=== PATIENT | female | born 1985 | race Caucasian/White ===

== ENCOUNTER 2017-07-27 08:18 | Emergency (ER) | payer OTHER ==
[2017-07-27 11:12] VITALS: BP 115/76
== END 2017-07-27 11:12 | disposition home or self-care (01) ==
LOC: ED 08:18
DX: S16.1XXA Strain of muscle, fascia and tendon at neck level, initial encounter (principal); S00.03XA Contusion of scalp, initial encounter; V49.40XA Driver injured in collision with unspecified motor vehicles in traffic accident, initial encounter; Y93.89 Activity, other specified; Y99.8 Other external cause status; Y92.89 Other specified places as the place of occurrence of the external cause

== ENCOUNTER 2017-08-28 23:48 | Inpatient (IN) | payer OTHER ==
[~2017-08-28] VITALS: Ht 149.9 cm; Wt 55.0 kg
--- NOTE | 2017-08-29 00:02 | NUR ---
PT BIB AMBULANCE WITH MOIZ FIRE FOR C/O HYPERVENTILATION AND ABDOMINAL CRAMPING. PER MEDICS PT WAS SEEN AT ER YESTERDAY AND WAS TOLD SHE WAS HAVING A MISCARRIAGE AT 6 WEEKS GESTATION. PT WAS SENT HOME WITH CYTOTEC AND ANTIBIOTICS. PT STATES SHE PASSED MULTIPLE COTS AT APPROX 1930 THIS EVENING AND HAS BEEN HAVING VAGINAL BLEEDING AND ABDOMINAL CRAMPING. PT ARRIVED AWAKE AND ALERT, RESP EVEN BUT SLIGHTLY LABORED. PT PLACED ON FULL MONITORS WITH BEDSIDE RAILS FOR SAFETY. CALL GARCES WITHIN REACH.
--- NOTE | 2017-08-29 00:05 | NUR ---
DR CLINTON AT BEDSIDE FOR MSE
[2017-08-29 01:04] LABS: BASOPHIL % 0.2 % (0-2); PLATELET COUNT 233 x10^3mcL (130-400)
--- NOTE | 2017-08-29 01:04 | NUR ---
ACCOMPANIED DR CLINTON WITH PELVIC EXAM
[2017-08-29 01:05] LABS: RED CELL DISTRIBUTION WIDTH 15.7 % (11.5-14.5)
--- NOTE | 2017-08-29 01:07 | NUR ---
PT PROVIDED ICE CHIPS OK PER DR CLINTON
--- NOTE | 2017-08-29 01:21 | NUR ---
PT IS HYPOTENSIVE. RESPIRATIONS LABORED. PT STATES SHE IS 10/[address] CLINTON AWARE. NORMAL SALINE BOLUS ORDERED. WILL CONTINUE TO MONINTOR.
--- NOTE | 2017-08-29 01:41 | NUR ---
PT BP NOW 104/51. PT RECIEVED PAIN MEDS. CHANGED PT PADS. LARGE AMOUNT OF BLOOD NOTED ON PADS. VITAL SIGNS STABLE.
--- NOTE | 2017-08-29 01:54 | NUR ---
RADIOLOGY AT BEDSIDE FOR ULTRASOUND.
--- NOTE | 2017-08-29 02:09 | NUR ---
PT STATES PAIN IS STILL 10. VITAL SIGNS STABLE. RESPIRATIONS EVEN AND UNLABORED. DR. CLINTON MADE AWARE.
--- NOTE | 2017-08-29 02:40 | NUR ---
REPORT CALLED TO ALETHEA WILKINS TO ASSUME CARE OF PT
--- NOTE | 2017-08-29 03:08 | NUR ---
PT ARRIVED ON THE FLOOR FROM ER VIA GUERNEY ACCOMPANIED BY AND NURSE. PT IS ADMITTED W/ C/O HYPERVENTILATING, ABDL CRAMPING AND VAGINAL BLEEDING. SHE IS AWAKE, ALERT,ORIENTED X4. DENIES SOB. V/S TAKEN . PT KEPT WARM AND COMFORTABLE.
[2017-08-29 03:29] VITALS: BP 92/49
--- NOTE | 2017-08-29 03:54 | NUR ---
REPORT GIVEN TO ICU NURSE CELE.
[2017-08-29 04:03] LABS: T3 TOTAL 1.48 ng/mL
[2017-08-29 04:04] LABS: FREE T4 0.95 ng/dL (0.76-1.46); FREE THYROXINE INDEX 2.2 ug/dL (1.4-4.5); T4(THYROXINE) 6.8 ug/dL (4.7-13.3)
--- NOTE | 2017-08-29 04:05 | NUR ---
TRANSFERRED PT TO ICU ORDERED.
--- NOTE | 2017-08-29 04:06 | NUR ---
RECEIVED FROM [facility] BY BED PT ABLETO TRANSFER TO BED.ALERT AND ORIENTED,SHIVERING C/O TINGLING ON BOTHLEGS AND ABDOMINAL CRAMPING.CARDIAC SCOPE SHOWS SR HR 76.ON ROOM AIR RR 22-32 O2 SAT 100%.BP 104/55 MEAN 69 MMHG.LEFT AC IV G#20 WITH NS AT 20 ML/H INFUSING WELL.THUY PAD SATURATED.ORIENTED TO UNIT AND ROUTINE .CALL LIGHT WITHIN REACH BED ON LOW POSITION.
[2017-08-29 04:16] LABS: MAGNESIUM 1.5 mg/dL (1.8-2.4); PHOSPHOROUS 2.8 mg/dL (2.5-4.9)
--- NOTE | 2017-08-29 04:37 | NUR ---
PT SEEN BY AWARE PT C/O TINGLING HANDS AND FEET.PTS AT BEDSIDE.
[2017-08-29 04:51] LABS: CHOLESTEROL/HDL RATIO 3.3
--- NOTE | 2017-08-29 04:56 | NUR ---
C/O PAIN 07/31 MEDICATED WITH TORADOL IVP AND ATIVAN 0.5 MG IVP.
--- NOTE | 2017-08-29 05:13 | NUR ---
PT EXPRESSED RELIEF POST MEDICATION NOW DOOZING OFF.
[2017-08-29 05:54] LABS: CARBON DIOXIDE 20.2 mmol/L (21-32); CHLORIDE SERUM 109 mmol/L (98-107); CREATININE SERUM 0.9 mg/dL (0.6-1.0); GFR1 > 60 mL/min; GLUCOSE SERUM 109 mg/dL (74-106); POTASSIUM SERUM 3.1 mmol/L (3.5-5.1); SODIUM SERUM 140 mmol/L (136-145)
[2017-08-29 05:55] LABS: BASOPHIL % 0.4 % (0-2); PLATELET COUNT 202 x10^3mcL (130-400); RED BLOOD CELLS 2.76 M/mm3 (4.10-5.10); RED CELL DISTRIBUTION WIDTH 15.4 % (11.5-14.5)
[2017-08-29 05:59] LABS: IRON 36 ug/dL (50-170); TOTAL IRON BINDING CAPACITY 261 ug/dL (250-450)
--- NOTE | 2017-08-29 06:01 | NUR ---
PT SEEN BY UPDATED ON PTS STATUS.PT SLEEPING WITH AT BEDSIDE.SBP 104 MEAN 65 MMHG.NO ACTIVE VAGINAL BLEEDING AT THIS TIME NEW PERIPAD PLACED.
--- NOTE | 2017-08-29 06:20 | NUR ---
PAGE GATED DR. GARRIDO ABOUT POTASSIUM OF 3.1, AWAITING ORDERS.
[2017-08-29 08:00] VITALS: BP 86/43
--- NOTE | 2017-08-29 08:00 | NUR ---
RECEIEVED REPORT FROM CLAUDETTE OAKLEY TO ASSUME ALL CARES. ALL QUESTIONS AND CONCERNS ADDRESSED. PATIENT IS A/O X4. ABLE TO FOLLOW COMMANDS AND MAKE NEEDS KNOWN. PATIENT ON ROOM AIR. RESPIRATIONS ARE EQUAL AND SYMMETRICAL. NO SIGNS OF DISTRESS. NAIL CUTTER SHOWS NSR. NS INFUSING AT 20 ML/HR VIA LAV IV WITH NO SIGNS OF INFILTRATION NOTED. SCD'S AT BEDSIDE. BED TO LOWEST POSITION, SIDE RAILS UP X2 AND CALL LIGHT WITHIN REACH. WILL CONTINUE TO MONITOR.
--- NOTE | 2017-08-29 10:56 | NUR ---
PATIENT GOT UP TO URINATE VIA BSC WITH MINIMAL ASSIST. PAD CHANGED X1 WITH MODERATE AMOUNT OF BLOOD AND NO BLOOD CLOTS OBSERVED. PATIENT C/O DOUBLE VISION SINCE THIS MORNING. WILL NOTIFY RESIDENT. WILL CONTINUE TO MONITOR.
--- NOTE | 2017-08-29 11:35 | NUR ---
DR. BRIAN SPOKE WITH PATIENT AND GOT CONSENT FOR DILATION AND CURETTAGE, POSSIBLE BLOOD TRANSFUSION AND ANESTHESIA. ALL QUESTIONS AND CONCERNS ADDRESSED. WILL CONTINUE TO MONITOR.
[2017-08-29 11:39] VITALS: BP 110/76
--- NOTE | 2017-08-29 11:57 | NUR ---
PATIENT OFF FLOOR VIA BED ATTACHED TO BENEFITS MANAGER ACCOMPANIED BY OR NURSE'S FOR PROCEDURE.
--- NOTE | 2017-08-29 14:00 | NUR ---
PATIENT RETURNED FROM OR S/P D&C PROCEDURE VIA BED ATTACHED TO CUSTOMER RELATIONS ADVISOR ACCOMPANIED BY NURSE. VS: TEMP 98.0 ORALLY, NIBP 102/59, MAP 73, HR 73, RR 18, 02 SAT 98% RA. PATIENT DENIES PAIN AT THIS TIME. BED TO LOWEST POSITION, SIDE RAILS UP X2, CALL LIGHT WITHIN REACH. WILL CONTINUE TO MONITOR.
[2017-08-29 15:06] LABS: UA SPECIFIC GRAVITY <=1.005 (1.005-1.035); microscopic required? YES; urine erythrocyte 3+ (NEGATIVE)
[2017-08-29 15:14] LABS: AMPHETAMINE QUAL UR NONE DETECTED (NEG <=1000)
[2017-08-29 15:30] VITALS: BP 99/53
--- NOTE | 2017-08-29 15:44 | NUR ---
PATIENT C/O BURNING WHEN POTASSIUM IS INFUSING. INFUSION STOPPED. DR. BRIAN MADE AWARE AND WILL ORDER POTASSIUM PO. WILL FOLLOW AND CONTINUE TO MONITOR.
--- NOTE | 2017-08-29 16:47 | NUR ---
PATIENT NOT TOLERATING IV MAG-RIDER AT THIS TIME. REPORTS BURNING SENSATION TO IV SITE. NO REDNESS, SWELLING OR INFILTRATION TO SITE NOTED. IV MAG RIDER STOPPED. DR. PAEZ PAGED TO CHANGE TO MAG-OX PO. WARM COMPRESS PROVIDED FOR COMFORT. CALL LIGHT IN REACH.
--- NOTE | 2017-08-29 19:05 | NUR ---
RECEIVED REPORT FROM CLAUDETTE LOPEZ WILL ENDORSE CARE
[2017-08-29 19:42] VITALS: BP 96/47
--- NOTE | 2017-08-29 19:49 | NUR ---
PT AOX4, NO HEADACHE, NO COUGH OR SECRETIONS, ORAL MUCOSA PINK AND MOISTE. RESPIRATIONS EQUAL AND UNLABORED, LUNGS CLEAR. NO DISTRESS. HR 88, BP 96/47, MAP 60, CHEST WALL STABLE, NO CP, DIZZINESS, OR SYNCOPE. SKIN APPROPRIATE FOR ETHNICITY WARM AND DRY, CAP REFILL <3, PULSES PALPABLE, NO EDEMA NOTED. NO CONTRACTURES OR DEFORMITIES. REGULAR DIET, NO N/V. ABD SOFT, ROUND, NONTENDER, BOWEL SOUNDS ACTIVE, NO BM. PERIPAD IN PLACE SMALL SECRETIONS, DENIES LABIAL EDEMA. CALM AND COOPERATIVE, WILL CONTINUE TO MONITOR.
[2017-08-29 23:19] VITALS: BP 113/68
[2017-08-30 03:12] VITALS: BP 107/59
[2017-08-30 05:12] LABS: CALCIUM 7.6 mg/dL (8.5-10.1); CARBON DIOXIDE 24.4 mmol/L (21-32); CHLORIDE SERUM 110 mmol/L (98-107); CREATININE SERUM 0.7 mg/dL (0.6-1.0); GFR1 > 60 mL/min; GLUCOSE SERUM 96 mg/dL (74-106); MAGNESIUM 2.1 mg/dL (1.8-2.4); PHOSPHOROUS 3.5 mg/dL (2.5-4.9); POTASSIUM SERUM 4.4 mmol/L (3.5-5.1); SODIUM SERUM 140 mmol/L (136-145)
[2017-08-30 05:13] LABS: PLATELET COUNT 193 x10^3mcL (130-400); RED CELL DISTRIBUTION WIDTH 15.5 % (11.5-14.5)
[2017-08-30 05:14] LABS: BASOPHIL % 0.9 % (0-2)
--- NOTE | 2017-08-30 07:25 | NUR ---
REPORT GIVEN TO CLAUDETTE ROMERO, ALL QUESTIONS ADDRESSED, WILL ENDORSE CARE
[2017-08-30 07:45] VITALS: BP 114/58
--- NOTE | 2017-08-30 07:45 | NUR ---
RECEIVED PATIENT AAOX4, ABLE TO COMMUNICATE AND FOLLOW COMMANDS, DENIES CHEST PAIN, NO DISTRESS NOTED, RESPIRAITONS EVEN AND UNLABORED, ON ROOM AIR, AND DENIES SOB, DENIES N/V/D, IV TO LAV CDI, CALL LIGHT AND BELONGINGS WITHIN REACH, AND WILL CONTINUE TO MONITOR.
--- NOTE | 2017-08-30 08:40 | NUR ---
PATIENT C/O HEADACHE, NORCO 7.5/325 TAB PO Q4H PRN GIVEN FOR HEADACHE, CALL LIGHT WITHIN REACH, AND WILL CONTINUE TO MONITOR.
--- NOTE | 2017-08-30 09:10 | NUR ---
PATIENT ROUNDS WITH DR. BERGMAN AND RESIDENTS. CHARGE NURSE AND PRIMARY NURSE AT BEDSIDE. UPDATES PROVIDED AND POC DISCUSSED. WILL CONTINUE TO MONITOR.
[2017-08-30] MEDS ORDERED: FER300 PO (09:17)
[2017-08-30] MEDS ORDERED: VITC PO (09:17)
[2017-08-30] MEDS ORDERED: COL100 PO (09:17)
[2017-08-30 10:54] VITALS: BP 96/54
--- NOTE | 2017-08-30 10:55 | NUR ---
PATIENT C/O HEADACHE, AWARE AND OK TO GIVE TYLENOL BEFORE DISCHARGE, WILL GIVE TYLENOL BEFORE DISCHARGE AND WILL CONTINUE TO MONITOR.
--- NOTE | 2017-08-30 10:59 | NUR ---
TYLENOL 650MG PO Q6H PRN GIVEN FOR HEADACHE, NO DISTRESS NOTED, AWARE AND WILL CONTINUE TO MONITOR.
--- NOTE | 2017-08-30 11:15 | NUR ---
DISCHARGE INSTRUCTIONS GIVEN TO PATIENT AT BEDSIDE, ALL QUESTIONS AND CONCERNS ADDRESSED, CALL LIGHT WITHIN REACH, AND WILL CONTINUE TO MONITOR.
--- NOTE | 2017-08-30 11:22 | NUR ---
PATIENT DISCHARGED TO HOME VIA WHEELCHAIR AAOX4, ACCOMPANIED BY SIGNIFICANT OTHER AND PATIENTS MOTHER TO LOBBY, NO DISTRESS NOTED, PATIENT TOOK ALL DISCHARGE INSTRUCTIONS, AND ALL PERSONAL BELONGINGS, IV D/C AND CANNULA INTACT.
== END 2017-08-30 11:22 | disposition home or self-care (01) | DRG 544 ==
LOC: ED 23:48 → DU 08-29 02:08 → IC 08-29 02:08 → DU 08-29 03:15 → IC 08-29 04:04 → DU 08-29 04:15 → IC 08-29 04:24
PROVIDERS: Emergency Medicine; Obstetrics & Gynecology; ADMIT Family Medicine Sports Medicine
PROC: 10D17ZZ Extraction of Products of Conception, Retained, Via Natural or Artificial Opening (ICD-10-PCS; principal; 2017-08-29 13:00)
DX: O03.1 Delayed or excessive hemorrhage following incomplete spontaneous abortion (principal); N17.0 Acute kidney failure with tubular necrosis; D62 Acute posthemorrhagic anemia; E83.51 Hypocalcemia; E87.8 Other disorders of electrolyte and fluid balance, not elsewhere classified; E87.6 Hypokalemia; Z68.24 Body mass index [BMI] 24.0-24.9, adult
CPT/HCPCS: 83880; 84439; J1170; J1885; J2060; J2250; J2405; J2704; J3010; J3475; J3480; J7030; J7120; Q0092